=== PATIENT | male | born 1960 | race Caucasian/White ===

== ENCOUNTER → 2016-12-02 | Outpatient (CLI) | payer MEDICARE, BC ==
[~2016-12-02] MED LIST: AMBIEN PO; AMBIEN10 MG PO; AMIODARONE HCL100 MG PO; ASPIRIN81 M1 PO; B COMPLEX1 CA1; B-121000 MC4 PO; B-COMPLEX; B1 PO; BENAZEPRIL PO; BUMETANIDE2 M1 PO; BUMEX PO; BUMEX2 MG PO; CARDURA PO; CHEWABLE ASPIRI81 MG PO; CHLOROTHIAZIDE500 MG PO; CLOBETASOL PROP15 G1 TOP; CLOBETASOL PROP15 GM; CLOBETASOL PROP15 GM TP; COLACE PO; COLESTID1 GM PO; COMBIVENT MININEB; COMBIVENT MININEB INH; COMBIVENT U/D3 M2 INH; COREG6.25 M1 PO; COUMADIN3 MG PO; COUMADIN7.5 MG PO; COZAAR PO; D3 + K2 DOTS 1,1 TAB PO; D3 PO; EFFEXOR PO; EFFEXOR XR PO; EFFEXOR-XR150 MG PO; ENBREL50 MG/M1 SQ; ESCITALOPRAM OX10 MG PO; FERROUS SULFATE1 GM; FLAGYL PO; FOLIC ACID PO; FOLIC ACID1 MG PO; FORADIL12 MCG NEB; GENESUPP-5001 CAP PO; IMDUR-ER30 M1 PO; INDERAL20 MG PO; ISOSORBIDE PO; LEVAQUIN PO; LEXAPRO PO; LIPITOR20 MG PO; LIPITOR40 MG PO; LOPERAMIDE HCL2 M1 PO; LOPRESSOR PO; LORTAB 7.5-5001 TAB PO; LOVAZA1 G PO; LOVENOX80 MG/0.8 INJ; METHIMAZOLE10 MG PO; METHIMAZOLE5 MG PO; METOPROLOL PO; METOPROLOL SUC100 MG PO; METOPROLOL TAR25 MG PO; MEVACOR40 MG PO; NEURONTIN100 MG PO; NEXIUM PO; NITROSTAT0.4 MG SL; OMEPRAZOLE20 M1 PO; OMEPRAZOLE40 M1 PO; OTEZLA30 MG PO; PANTOPRAZOLE SO40 MG PO; PHENERGAN25 M1 PO; PHENERGAN25 MG PO; PHOSLO667 MG PO; PLAVIX PO; PREDNISONE PO; PREDNISONE5 M1 PO; PRILOSEC PO; PRILOSEC20 MG PO; PROCRIT SUBQ; PROGRAF0.5 MG PO; PROMETHAZINE HC25 MG PO; PROTONIX PO; QUININE SULFAT324 MG PO; REGLAN5 MG PO; RENVELA800 MG PO; SPIRIVA18 MCG PO; SUPER B COMPLEX1 CAP PO; THERAPEUTIC FOR1 TA1 PO; TOPROL XL PO; VICODIN 5-3001 EACH PO; VIT B 1; VIT B 12 INJECTION; VITAMIN B-1100 M1 PO; VITAMIN D PO; VITAMIN D31000 UNI1 PO; VITAMIN D5000 UNIT PO; VITAMIN D50000 UNIT PO; VYTORIN 10/20 T1 TAB PO; [UNRECOGNIZED DRUG - CODE]; [UNRECOGNIZED DRUG - OTHER] PO
[2016-12-03 11:47] LABS: HEP B VIRUS DNA - VIRAL LOAD REF
[2016-12-04 08:43] LABS: HEP C AB (HEPPAN) Nonreactive (Nonreactive); HEP C AB SIGNAL TO CUTOFF 0.13 ratio (<1.00)
== END | disposition home or self-care (01) ==
LOC: STPL 11:17
PROVIDERS: Surgery
DX: Z48.22 Encounter for aftercare following kidney transplant (principal); Z94.0 Kidney transplant status; Z79.899 Other long term (current) drug therapy
CPT/HCPCS: 36415; 86803; 87517; 87806

== ENCOUNTER → 2016-12-23 | Outpatient (CLI) | payer MEDICARE, BC ==
[2016-12-23 09:17] LABS: BASOPHIL# 0.1 X10e3 (0-0.3); BASOPHIL% 1.8 % (0-2.5); EOSINOPHIL% 1.3 % (0.0-7.0); HEMATOCRIT 26.2 % (38.0-50.0); HEMOGLOBIN 8.4 gm/dL (13.0-16.0); LYMPHOCYTE# 0.9 X10e3 (1.0-3.5); LYMPHOCYTE% 26.6 % (17.0-45.0); MEAN CELL VOLUME 106.6 FL (83-96); MEAN CORPUSCULAR HEMOGLOBIN 34.1 PG (28-34); MEAN PLATELET VOLUME 6.8 FL (6.5-11.5); MONOCYTE# 0.5 X10e3 (0-1.0); MONOCYTE% 15.1 % (3.0-12.0); NEUTROPHIL# 1.9 X10e3 (1.5-7.1); NEUTROPHIL% 55.2 % (40-75); PLATELET COUNT 180 X10e3 (140-420); RED BLOOD COUNT 2.46 X10e (3.90-5.60); RED CELL DISTRIBUTION WIDTH 24.3 % (11.0-15.5); WHITE BLOOD COUNT 3.5 X10e3 (4.0-10.5)
[2016-12-23 09:19] LABS: DIFF IND NO
[2016-12-23 09:45] LABS: AMPHETAMINE NEG (NEG); BARBITURATES NEG (NEG); BENZODIAZEPINES NEG (NEG); COCAINE NEG (NEG); MARIJUANA NEG (NEG); OPIATES NEG (NEG); TRICYCLIC ANTIDEPRESSANTS NEG (NEG); U METHADONE NEG (NEG)
[2016-12-23 11:45] LABS: ALBUMIN SERUM 2.8 g/dL (3.5-5.0); ALKALINE PHOSPHATASE 86 U/L (32-92); ALT (SGPT) 17 U/L (10-40); AST (SGOT) 35 U/L (10-42); BILIRUBIN,TOTAL 0.6 mg/dL (0.2-2.0); BLOOD UREA NITROGEN 38 mg/dL (9-23); BUN/CREATININE RATIO 6.78; CALCIUM SERUM 8.6 mg/dL (8.4-10.2); CARBON DIOXIDE 26 mmol/L (22-31); CHLORIDE 96 mmol/L (100-111); CHOLESTEROL 135 mg/dL (0-200); CREATININE SERUM 5.6 mg/dL (0.6-1.4); GLOM FILT RATE Estimated 11.2 mL/min (>60); GLUCOSE FASTING 71 mg/dL (70-110); MAGNESIUM 1.9 mg/dL (1.6-3.0); PHOSPHOROUS 5.2 mg/dL (2.5-4.6); POTASSIUM 5.1 mmol/L (3.5-5.1); PROTEIN TOTAL SERUM 5.9 g/dL (6.0-8.3); SODIUM 134 mmol/L (135-145); TRIGLYCERIDES 76 mg/dL (10-160)
[2016-12-23 11:50] LABS: ALCOHOL BLOOD <5 mg/dL (0)
[2016-12-23 15:28] LABS: EVEROLIMUS - JH <2.0 ng/mL (3.0-8.0); FK506 (TACROLIMUS) - JH <1.0 ng/mL (5.0-20.0)
== END | disposition home or self-care (01) ==
LOC: STPL 08:37
PROVIDERS: Surgery
DX: Z48.22 Encounter for aftercare following kidney transplant (principal); T45.1X1A Poisoning by antineoplastic and immunosuppressive drugs, accidental (unintentional), initial encounter; B97.7 Papillomavirus as the cause of diseases classified elsewhere; E83.40 Disorders of magnesium metabolism, unspecified; E83.30 Disorder of phosphorus metabolism, unspecified; Z94.0 Kidney transplant status; Z79.899 Other long term (current) drug therapy
CPT/HCPCS: 36415; 80053; 80197; 80299; 80307; 82465; 83735; 84100; 84478; 85025; G0480

== ENCOUNTER → 2017-01-21 | Outpatient (CLI) | payer MEDICARE, BC | END | disposition home or self-care (01) | LOC: STPL 08:18 | DX: Z48.22 Encounter for aftercare following kidney transplant (principal); T45.1X1A Poisoning by antineoplastic and immunosuppressive drugs, accidental (unintentional), initial encounter; Z94.0 Kidney transplant status; Z79.891 Long term (current) use of opiate analgesic | CPT/HCPCS: 36415; 80197 ==

== ENCOUNTER → 2017-02-25 | Outpatient (CLI) | payer MEDICARE, BC ==
[2017-02-25 11:29] LABS: IRON SERUM 42 ug/dL (45-182); TOTAL IRON BINDING CAPACITY 183 ug/dL (252-460); TRANSFERRIN 130 mg/dL (180-329); TRANSFERRIN SATURATION 23 % (20-50)
[2017-02-25 11:47] LABS: FOLATE (FOLIC ACID) >23.6 ng/mL (>5.8)
== END | disposition home or self-care (01) ==
LOC: STPL 08:43
PROVIDERS: Internal Medicine
DX: Z48.22 Encounter for aftercare following kidney transplant (principal); Z94.0 Kidney transplant status; Z79.891 Long term (current) use of opiate analgesic
CPT/HCPCS: 36415; 80197; 82607; 82728; 82746; 83010; 83540; 83550; 85044

== ENCOUNTER 2017-03-02 11:29 | Inpatient (IN) | payer MEDICARE, BC ==
--- NOTE | ~2017-03-02 | CO ---
Unit #: [id number] #: [id number] Patient: SARAH MEIER [id number] [address] [address] [id number] I MR#: [id number] NAME: SARAH MEIER. ROOM: 574 Age: 56 Sex: M Admission Date: 03/02/2017 : 1960 Attending Physician: Ezekiel Arthur M.D. Primary Care Physician: Jamison Gonzalez M.D. Consultation Date: 03/03/2017 CONSULTATION REPORT REASON FOR CONSULTATION Abnormal thyroid function tests. HISTORY OF PRESENT ILLNESS This is a 56-year-old pleasant male who has history of multiple medical problems including hyperthyroidism; end-stage renal disease, on hemodialysis; atrial flutter and fibrillation; coronary artery disease, CHF; hypertension; and hyperlipidemia. He has been presented to the hospital with increasing shortness of air and being admitted with the diagnoses of pneumonia. As mentioned above, his medical history remarkable for hyperthyroidism, on methimazole 5 mg daily. He follows me in my office regularly. On this admission, he had labs done, which is TSH is 18.5 with a free T4 0.55, free T3 is 2.0. I have been asked to see the patient for further management. REVIEW OF SYSTEMS A 10-point review of system is completed. Remarkable for shortness of air. Cough with sputum. No weight changes. Rest of the review of system is unremarkable. PAST MEDICAL HISTORY 1. Congestive heart failure. 2. Pulmonary hypertension. 3. End-stage renal disease, on hemodialysis. 4. Hyperthyroidism. PAST SURGICAL HISTORY 1. Kidney transplant, failed. 2. Cardiac stents. 3. Coronary bypass grafting surgery. 4. Left upper extremity shunt placement. 5. Cholecystectomy. SOCIAL HISTORY Lives with his . Quit smoking. Reports occasional alcohol use. FAMILY HISTORY Notable for dad having coronary artery disease. ALLERGIES To caffeine, codeine, amiodarone, and Effient. HOME MEDICATIONS Unit #: [id number] #: [id number] Patient: SARAH MEIER List is reviewed. The patient is on methimazole 5 mg daily. Other medications include; Lexapro, omeprazole, atorvastatin, gabapentin, isosorbide, loperamide, Procrit, Prograf, and prednisone. PHYSICAL EXAMINATION GENERAL: He is awake, alert, and oriented to time, place, and person. VITAL SIGNS: Stable. Temperature 98.2, pulse is 93, and blood pressure 140/73. HEENT: EOMI. Pupils are equally reactive to light. NECK: Supple. No thyromegaly noted. CHEST: Decreased air entry with some rhonchi bilaterally. CVS: Regular rhythm. S1 and S2. ABDOMEN: Soft and nontender. Bowel sounds are positive. EXTREMITIES: He does have some edema. LABORATORY DATA Creatinine is 4.7. TSH is 18.5. ASSESSMENT Hyperthyroidism. PLAN The patient is biochemically hypothyroid at this time. He is going to discontinue his methimazole. Repeat thyroid function test in six weeks. Further management will depend upon those results. Dictated by... Yue Samuel/hernan TD: 03/04/2017 13:51 JOB #: [id number] CONSULTATION REPORT Page 1 of 1 X Florina Vega MD X CONSULTATION REPORT
--- NOTE | ~2017-03-02 | EKG ---
PATIENT: SARAH MEIER UNIT #: [id number] Ventricular Rate: 87 BPM Atrial Rate: 87 BPM P-R Interval: 188 ms QRS Duration: 110 ms Q-T Interval: 378 ms QTC Calculation(Bezet): 454 ms P Kaplan: 107 degrees Calculated R Kaplan: -14 degrees Calculated T Kaplan: 52 degrees Diagnosis Line: Normal sinus rhythm Diagnosis Line: Septal infarct , age undetermined Diagnosis Line: Abnormal ECG Diagnosis Line: When compared with ECG of 09-OCT-2016 12:55, Diagnosis Line: No significant change was found Diagnosis Line: Confirmed by SHILPI TEMPLETON MD ([id number]) on Diagnosis Line: 03/04/2017 3:11:55 PM INTERPRETING MD: JARETH AMEZCUA
--- NOTE | ~2017-03-02 | EKG ---
PATIENT: SARAH MEIER UNIT #: [id number] Ventricular Rate: 85 BPM Atrial Rate: 85 BPM P-R Interval: 174 ms QRS Duration: 104 ms Q-T Interval: 388 ms QTC Calculation(Bezet): 461 ms P Afton: 34 degrees Calculated R Afton: 19 degrees Calculated T Afton: 61 degrees Diagnosis Line: Normal sinus rhythm Diagnosis Line: Normal ECG Diagnosis Line: When compared with ECG of 02-MAR-2017 12:02, Diagnosis Line: (unconfirmed) Diagnosis Line: No significant change was found Diagnosis Line: Confirmed by HEMA ARORA MD ([id number]) on Diagnosis Line: 03/04/2017 5:25:53 PM INTERPRETING MD: DEVIN
--- NOTE | ~2017-03-02 | DS ---
Unit #: [id number] #: [id number] Patient: SARAH MEIER [id number] [place] [address] [id number] I MR#: [id number] NAME: SARAH MEIER. ROOM: 574 Age: 56 Sex: M Admission Date: 03/02/2017 : 1960 Discharge Date: 03/04/2017 Attending Physician: Ezekiel Arthur M.D. Primary Care Physician: Jamison Gonzalez M.D. DISCHARGE SUMMARY DISCHARGE DIAGNOSES 1. Simple pneumonia/community-acquired pneumonia. 2. Acute hypoxic respiratory failure. 3. End stage renal disease. 4. Anemia of chronic disease. 5. Hyperthyroidism. 6. Chronic diastolic heart failure. 7. History of renal transplant. HOSPITAL COURSE The patient is a 56-year-old male who presented to [facility] on 03/02/17 complaining of shortness of breath and fever. He had had 3-4 days of increasing shortness of breath and nonproductive cough with fevers and chills. Chest x-ray showed pneumonia. Patient's oxygen saturations were initially in the 90s, but dropped into the 80s prior to presentation. Therefore, he initially required 2 liters of oxygen per nasal cannula. Patient was initially treated with vanc., Zosyn, and tobra. given a recent admission at [facility]. The patient's clinical course has not been complicated and, based on this, I feel that an actual diagnosis of a hospital-acquired pneumonia is less likely. His aggressive IV antibiotics have thus been discontinued. At this time, the patient is actually up and ambulating without difficulty and requesting discharge. I am discharging him home on oral Levaquin. DISCHARGE MEDICATIONS 1. Prednisone 5 mg daily. 2. Combivent Respimat 1 puff q.i.d. 3. Clobetasol propionate topically as needed. 4. Neurontin 200 mg p.o. b.i.d. 5. Lexapro 10 mg p.o. daily. 6. Loperamide 2 mg p.o. daily. 7. Quinine sulfate 324 mg p.o. b.i.d. 8. Ambien 10 mg p.o. q.h.s. 9. Coreg 6.25 mg p.o. b.i.d. 10. Otezla 30 mg daily. 11. Procrit at dialysis. 12. Lipitor 10 mg at bedtime. 13. Ferrous sulfate granules daily. 14. Prograf 0.05 mg every other day. 15. Imdur ER 30 mg p.o. daily. 16. Nitrostat 0.4 mg sublingual as needed. 17. Vitamin B12 1000 mcg p.o. at bedtime. 18. Folic 1 mg at bedtime. Unit #: [id number] #: [id number] Patient: SARAH MEIER 19. Levaquin 500 mg p.o. every other day x2 doses. FOLLOWUP 1. Patient is to follow up with his primary care physician at the end of his antibiotic course. 2. Patient should also follow up with his regular scheduled dialysis. Dictated by... Ezekiel Arthur M.D. [place]UST[place]/celine TD: 03/05/2017 11:09 JOB #: [id number] DISCHARGE SUMMARY Page 1 of 1 X Ezekiel Arthur MD X DISCHARGE SUMMARY
--- NOTE | ~2017-03-02 | CO ---
Unit #: [id number] #: [id number] Patient: SARAH MEIER [id number] [facility] [address] [facility]. [place], [place] [address] [id number] I MR#: [id number] NAME: SARAH MEIER. ROOM: 574 Age: 56 Sex: M Admission Date: 03/02/2017 : 1960 Attending Physician: Ezekiel Arthur M.D. Primary Care Physician: Jamison Gonzalez M.D. Consultation Date: 03/03/2017 CONSULTATION REPORT REASON FOR CONSULT Chest pain. HISTORY OF PRESENT ILLNESS This is a 56-year-old white male known to Dr. Muniz with a past medical history of coronary artery disease, status post PCI and stent following a myocardial infarction in 2011. The patient later underwent a coronary artery bypass grafting x4 grafts by Dr. Teran in February 2013. 2D echocardiogram on October 14, 2014, revealed an ejection fraction of 50% with mild mitral and aortic regurgitation with moderate tricuspid regurgitation. Right ventricular systolic pressure was elevated at 56 mmHg. Of note, the patient's previous ejection fraction was low at 30%. Additional past medical history includes end stage renal disease on hemodialysis with history of failed right renal transplant, hypertension, hyperlipidemia, COPD, and chronic pancytopenia. The patient was admitted to [facility] in October 2014 for Coumadin toxicity, dysphagia, and hyperthyroidism. He was also diagnosed with paroxysmal atrial fibrillation. According to the patient, he was not on anticoagulation for atrial fibrillation. He states that he was recently admitted to [facility] in the last couple of months with a complicated pneumonia. He was there for a prolonged length of time and his Coumadin was stopped. He presented to the emergency department with complaints of not feeling well. He states that he has been more short of breath. He has had a mildly productive cough and a possible fever but he had not checked his temperature. He has had some pain in his chest. It started in the left anterior chest and it was described as a stabbing pain. The following day the pain radiated into the right side of the chest. The pain has been nearly constant. It is worse with inspiration. He denies any dizziness or palpitations. He did have an episode a couple months ago of syncope which was not supposedly found to be a cardiac cause. Records from [facility] have been requested. He admits to some lower extremity edema but no worse than usual. There are no reports of PND or orthopnea. In the emergency department, his temperature was 98.4 with a pulse of 93 and blood pressure 148/69. Chest x-ray revealed increased atelectasis with consolidation in the left base. There was vague density in the right mid lung zone and mild cardiac prominence. There was concern for pneumonia and he was started on vancomycin and Zosyn, tobramycin and azithromycin. White blood cell count was normal. Hemoglobin was low at 7.2. Initial cardiac enzymes were negative. TSH was elevated at 18.52. EKG revealed sinus bradycardia with Q waves in the inferior leads and poor R wave progression in the anterior leads. The patient was admitted for Unit #: [id number] #: [id number] Patient: SARAH MEIER HCAP, chest pain and acute on chronic anemia with end stage renal disease. Sputum and blood cultures were obtained. He was started on nebulizers and antibiotics. Cardiology was consulted for chest pain. Nephrology was consulted to manage end stage renal disease. Gastroenterology was consulted due to anemia with a hemoglobin of 7.2. The patient was transfused with a unit of blood. He has been started on Epogen by nephrology. He underwent an EGD which was normal. His anemia is thought to be due to chronic disease. PAST MEDICAL HISTORY 1. Previous admission to [facility] October 22, 2014, for Coumadin toxicity, dysphagia, paroxysmal atrial fibrillation, and hyperthyroidism. 2. Chronic anticoagulation with Coumadin, which was recently stopped at [facility] for medical reasons. 3. Coronary artery disease with previous myocardial infarction in 2011, status post PCI and stent. 4. Coronary artery bypass grafting x4 in February 2013, by Dr. Teran at [facility]. 5. 2D echocardiogram October 14, 2014, revealed an ejection fraction of 50%. Mild mitral regurgitation. Moderate tricuspid regurgitation. Mild aortic regurgitation. Right ventricular systolic pressure 50 to 60 mmHg consistent with moderate to severe pulmonary hypertension. 6. History of ischemic cardiomyopathy with an ejection fraction of 30%, now improved to 50%. 7. Chronic systolic/diastolic congestive heart failure. 8. Hypertension. 9. Hyperlipidemia. 10. End stage renal disease, on hemodialysis. 11. COPD. 12. Chronic pancytopenia. 13. Failed right renal transplant. 14. GERD. 15. Reformed tobacco abuse. 16. Anxiety. 17. Chronic anemia. 18. Skin cancer. PAST SURGICAL HISTORY 1. Kidney biopsy. 2. EGD. 3. Colonoscopy. 4. Left arm shunt. 5. Cardiac catheterization, PCI and stent. 6. Coronary artery bypass grafting. 7. Cataract extraction. 8. Cholecystectomy. 9. Right kidney transplant, failed after approximately 11 months. HOME MEDICATIONS 1. Vitamin B12 1000 mcg p.o. at bedtime. 2. Escitalopram 10 mg p.o. daily. 3. Nitrostat 0.4 mg sublingual as needed for chest pain. 4. Lipitor 10 mg p.o. at bedtime. 5. Clobetasol, unknown dose on Med Rec. 6. Neurontin 100 mg p.o. b.i.d. 7. Otezla 30 mg p.o. daily. 8. Ferrous sulfate, unknown dose. Unit #: [id number] #: [id number] Patient: SARAH MEIER 9. Methimazole 5 mg p.o. at bedtime. 10. Quinine sulfate 324 mg p.o. b.i.d. 11. Procrit 20,000 units, dosing per nephrology. 12. Prograf 0.05 mg p.o. every other day. 13. Prednisone 5 mg p.o. with unknown frequency. 14. Ambien 10 mg p.o. at bedtime. 15. Carvedilol 6.25 mg p.o. b.i.d. 16. Imdur ER 30 mg p.o. daily. 17. Folic acid 1 mg p.o. at bedtime. 18. Loperamide 2 mg p.o. with unknown frequency. ALLERGIES Caffeine, codeine, amiodarone, and Effient. Reaction to amiodarone is reportedly tremors. SOCIAL HISTORY The patient is a reformed smoker. He quit smoking in 2010. There are no reports of illicit drug use. He does drink six beers per week. He has a history of heavier alcohol abuse but not recently. FAMILY HISTORY Significant for heart disease. A sister recently had myocardial infarction at the age of 59. REVIEW OF SYSTEMS Ten point review of systems is negative except for details noted above in HPI. PHYSICAL EXAMINATION VITAL SIGNS: Temperature 98, pulse 70, blood pressure 119/59. CONSTITUTIONAL: This is a 56-year-old white male in no acute distress. SKIN: Warm and dry. NECK: Supple. No jugular vein distention. No hepatojugular reflux. Normal carotid upstrokes. No carotid bruits auscultated. HEART: S1 and S2. Regular rate and rhythm. No murmurs, rubs or gallops. LUNGS: The patient's breath sounds are diminished in the bases. Respirations even and unlabored. No rales, rhonchi, or wheezes. ABDOMEN: Soft, nontender, and nondistended. Positive bowel sounds auscultated x4 quadrants. No ascites noted. EXTREMITIES: Bilateral extremities have no pretibial pitting edema. DP and PT pulses 2+. Capillary refill less than three seconds. DIAGNOSTIC STUDIES LABORATORY: White blood count 4.4, hemoglobin 8, hematocrit 24.7, platelets 126, sodium 132, potassium 4.2, chloride 101, CO2 22, BUN 41, creatinine 4.7, glucose 67, magnesium 1.5, protein 5.4, albumin 2.5, AST 18, ALT 13, alkaline phos. 65, troponin 0.03 and 0.03, total cholesterol 129, triglycerides 93, LDL 57, HDL 53, INR 1.0, TSH 18.52. IMAGING: Chest x-ray reveals increased atelectasis and consolidation in the left base. Vague density in the right mid lung zone. Mild cardiac vascular prominence. CARDIOVASCULAR: Electrocardiogram reveals sinus bradycardia with Q waves in the inferior leads and poor R wave progression. IMPRESSION 1. Chest pain. Unit #: [id number] #: [id number] Patient: SARAH MEIER 2. Left lower lobe pneumonia. 3. Acute on chronic anemia. 4. Status post normal esophagogastroduodenoscopy. 5. Coronary artery disease with history of coronary artery bypass grafting in February 2013, and previous PCI and stent in 2011. 6. History of ischemic cardiomyopathy with an ejection fraction of 30%. Ejection fraction was improved to 50% in October 2014. 7. Paroxysmal atrial fibrillation, now in sinus rhythm. Coumadin recently stopped at [facility] for medical reasons. Further information pending. 8. Moderate to severe pulmonary hypertension. 9. Moderate tricuspid regurgitation. 10. End stage renal disease, on hemodialysis. 11. Chronic obstructive pulmonary disease. 12. Hypertension. 13. Hyperlipidemia. 14. Failed right renal transplant. 15. Low magnesium. 16. Elevated TSH with history of hyperthyroidism. 17. History of alcohol abuse. 18. Reformed tobacco abuse. PLAN 1. The patient presented to the hospital with complaints of shortness of breath, cough and chest pain. He was admitted for pneumonia and acute on chronic anemia as well as end stage renal disease. 2. Cardiology was consulted for chest pain. 3. The patient's pain is sharp and stabbing. There is no radiation. Cardiac enzymes and EKG are not acute. 4. Will manage symptoms conservatively. 5. The patient is on antibiotics for pneumonia. 6. EGD was normal. The patient's anemia is thought to be due to chronic disease. 7. He will be continued on statin, beta omar and long acting nitrates. 8. Records from [facility] will be reviewed. The patient does have a history of paroxysmal atrial fibrillation and is currently in sinus rhythm. His Coumadin was stopped and usp anticoagulation will need to be discussed further upon discharge. Dictated by... Brianna Ruiz APRN for Yue Bates TD: 03/04/2017 08:53 JOB #: [id number] Unit #: [id number] #: [id number] Patient: SARAH MEIER CONSULTATION REPORT Page 1 of 1 X X CONSULTATION REPORT
--- NOTE | ~2017-03-02 | OR ---
Unit #: [id number] #: [id number] Patient: SARAH MEIER [id number] [facility] [address] [facility]. [place], [place] [address] [id number] MR#: [id number] NAME: SARAH MEIER. ROOM: 574 Date of Procedure: 03/03/2017 Admission Date: 03/02/2017 Surgeon: Too Barnhart M.D. : 1960 Attending Physician: Ezekiel Arthur M.D. Primary Care Physician: Jamison Gonzalez M.D. OPERATIVE REPORT PRIMARY CARE PHYSICIAN Jamison Gonzalez M.D. PREOPERATIVE DIAGNOSIS Anemia. PROCEDURE PERFORMED Upper gastrointestinal endoscopy. POSTOPERATIVE DIAGNOSES Completely normal examination up to third part of duodenum. RECOMMENDATIONS The patient does not have any gastrointestinal source of blood loss. In fact, the anemia is from renal disease and it should be managed with either blood transfusions or Procrit as needed. He has been extensively evaluated 2 years ago at [facility] and recently at [facility]. He can be started on diet as tolerated. SEDATION USED MAC. DESCRIPTION OF PROCEDURE Following detailed explanation of potential risks and complications of an upper endoscopy, namely perforation, bleeding, complication related to sedation, the patient was brought to GI lab and laid in the left lateral decubitus position. Lubricated tip of the Olympus video upper endoscope was passed through the bite block into the proximal esophagus under direct vision. The entire esophageal mucosa was examined and appeared normal. Z-line was nicely demarcated, there being no esophagitis or hiatus hernia. The scope was then advanced into the gastric cavity and the latter was insufflated. Mucosa of the fundus, body, and antrum was examined and appeared unremarkable. Pylorus was intubated with visualization of the normal duodenal bulb and second and third part of the duodenum. Upon withdrawal and retroflexion, incisura, cardia, and greater curve were examined and no additional findings noted. The scope was then withdrawn into the distal esophagus. The entire esophageal mucosa was examined all the way up to pharynx. No additional findings noted. The patient tolerated the procedure without any postprocedure complications. Dictated by... Unit #: [id number] #: [id number] Patient: SARAH MEIER TooYue Delvalle/hernan TD: 03/04/2017 05:35 JOB #: [id number] CC: Yue Rico M.D. OPERATIVE REPORT Page 1 of 1 X Too Barnhart MD X PROCEDURE OPERATIVE NOTE
--- NOTE | ~2017-03-02 | HP ---
Unit #: [id number] #: [id number] Patient: SARAH MEIER [id number] [facility]. [place], [place] [address] [id number] MR#: [id number] NAME: SARAH MEIER ROOM: Age: 56 Sex: M Admission Date: 03/02/2017 : 1960 Attending Physician: Paresh Cruz M.D. Primary Care Physician: Jamison Gonzalez M.D. HISTORY AND PHYSICAL CHIEF COMPLAINT Chest pain, short of air, fever. HISTORY OF PRESENT ILLNESS The patient is a 56-year-old male with a past medical history of chronic anemia, end-stage renal disease, on dialysis, atrial fibrillation/flutter, coronary artery disease, CHF, hypertension, hyperlipidemia, and hypothyroidism, who presented to the emergency department for evaluation of the above. The patient had a prolonged hospital stay at [facility] in October for pneumonia and sepsis. He was discharged to [facility] and ultimately returned home in December 2016 (no records). The patient had returned to baseline. The patient reports a three to four-day history of increasing shortness of breath, nonproductive cough, fever, and chills. He has also had chest pain. He states that the pain has been in the left upper chest radiating to his shoulder blades, as well as the right upper chest and also radiating to his back. Currently, the chest pain is in the mid chest. He describes it as "sharp." He has been somewhat nauseous in association with the pain. He states that it is not similar to when he had a heart attack in the past. Upon arrival in the emergency department, temperature was 98.4, pulse 93, respirations 18, blood pressure 148/69, and oxygen saturation 96% on room air. Chest x-ray showed consolidation involving the left base. Laboratory is notable for hemoglobin and hematocrit of 7.2 and 22.7, respectively. He was given vancomycin, tobramycin, and Zosyn in the emergency department, as well as azithromycin. He is being admitted to [facility] for evaluation and further treatment. PAST MEDICAL HISTORY 1. Admission to [facility] in October 2016 for pneumonia and sepsis. 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 He was discharged to [facility] and ultimately home in December 2016. He also underwent EGD and colonoscopy during that hospital stay. There are no records at the time of this dictation. The family states that he received 17 blood transfusions during that admission. 2. Admission to [facility] October 13-2014, for atrial fibrillation with rapid ventricular response. 3. History of atrial fibrillation/flutter, not on chronic anticoagulation, followed by Dr. Muniz. Unit #: [id number] #: [id number] Patient: SARAH MEIER 4. Coronary artery disease, status post myocardial infarction, stent placement, and ultimately coronary artery bypass grafting, followed by Dr. Muniz. 5. Congestive heart failure. The patient had an echocardiogram on October 14, 2014, that showed an ejection fraction of 50% with mild mitral regurgitation, moderate tricuspid regurgitation, mild aortic regurgitation, and elevated right ventricular systolic pressure at 50-60 mmHg. 6. Pulmonary hypertension with right ventricular systolic pressure as noted above. 7. Chronic obstructive pulmonary disease, followed by Dr. Mcknight. 8. Chronic respiratory failure, on two liters of oxygen per nasal cannula at night. 9. Hypertension. 10. Hyperlipidemia. 11. Chronic pancytopenia, followed by Dr. Hernandez. 12. End-stage renal disease, on dialysis Friday/Friday/Friday, followed by Dr. Schilling. The patient had a kidney transplant in November 2015. It apparently showed signs of rejection in October 2016. He is followed by Dr. Renee. PAST SURGICAL HISTORY 1. Kidney transplant. 2. Cardiac stent. 3. Cardiac catheterization. 4. Coronary artery bypass grafting. 5. EGD and colonoscopy most recently at [facility] in 2017 (no records). 6. Left upper extremity shunt placement. 7. Cataract surgery. 8. Cholecystectomy. SOCIAL HISTORY The patient lives with his . He quit smoking. He reports occasional alcohol use. He uses a cane intermittently. His code status is a Full Code. FAMILY HISTORY Notable for his dad having coronary artery disease. ALLERGIES Caffeine, codeine, amiodarone, and Effient. HOME MEDICATIONS 1. Vitamin B12. 2. Multivitamin. 3. Lexapro. 4. Omeprazole. 5. Nitroglycerin. 6. Atorvastatin. 7. Clobetasol ointment. 8. Gabapentin. 9. Otezla. 10. Iron sulfate. 11. Methimazole. 12. Quinine sulfate. 13. Ambien. 14. Carvedilol. Unit #: [id number] #: [id number] Patient: SARAH MEIER 15. Isosorbide. 16. Folic acid. 17. Loperamide. 18. Procrit shot. 19. Prograf. 20. Prednisone. Home medications will need to be reviewed and verified. REVIEW OF SYSTEMS A complete review of systems is negative except as indicated in the History of Present Illness. The patient reports paroxysmal nocturnal dyspnea. He also has dyspnea on exertion when walking across the room. He denies any change in his weight. He denies any blood in his stool or black tarry stool. He still makes urine. He denies any lower extremity swelling. The patient states that he has had a sleep study in the past and was told that he does not have sleep apnea. PHYSICAL EXAMINATION VITAL SIGNS: Temperature is 98.4, pulse 93, respirations 18, blood pressure 148/69, and oxygen saturation is 96% on room air. GENERAL: Patient is a very pleasant male who is awake, alert, and in no acute distress. HEENT: Head is atraumatic. Mucous membranes are moist. NECK: Supple. Trachea is midline. CARDIOVASCULAR: Regular rate and rhythm. LUNGS: Relatively clear to auscultation bilaterally with no increased work of breathing. ABDOMEN: Soft and nontender with bowel sounds present in all four quadrants. EXTREMITIES: Nontender with no pedal edema. NEUROLOGIC: Patient is awake and alert. He follows commands. PSYCHIATRIC: Mood and affect are normal. Patient is cooperative. SKIN: Skin of examined areas is warm and dry. DIAGNOSTIC STUDIES LABORATORY: Troponin is less than 0.05. INR is 1. Complete blood count notable for hemoglobin and hematocrit of 7.2 and 22.7, MCV is 108.3, RDW 16.5, and platelets 137,000. Comprehensive metabolic panel notable for a sodium of 134, glucose 112, BUN and creatinine 36 and 4.5, respectively, and calcium is 8 but corrects when albumin of 2.8 is accounted for. IMAGING: Chest x-ray shows consolidation involving the left base. CARDIOLOGY: EKG shows normal sinus rhythm with a rate of 87 beats per minute. ASSESSMENT The patient is a 56-year-old male with: 1. Healthcare-associated pneumonia. The patient received vancomycin, Zosyn, tobramycin, and azithromycin in the emergency department. 2. Chest pain with a history of coronary artery disease, status post coronary artery bypass grafting, followed by Dr. Muniz. The patient's initial troponin was less than 0.05. 3. Acute on chronic anemia. The patient's hemoglobin was 8.4 on December 23, 2016. It is 7.2 today. The patient denies any blood in the stool or black tarry stool. He is on Procrit, as well as iron. He had an EGD and colonoscopy earlier this year at [facility] (no Unit #: [id number] #: [id number] Patient: SARAH MEIER). 4. End-stage renal disease, on dialysis Friday/Friday/Friday. The patient apparently missed dialysis on Friday but had dialysis yesterday. He is followed by Dr. Schilling. He is status post failed kidney transplant. However, he is still on Prograf and prednisone and is therefore chronically immunosuppressed. He is followed by Dr. Renee regarding the kidney transplant. 5. Atrial fibrillation, currently in normal sinus rhythm, not on chronic anticoagulation due to chronic anemia. 6. Coronary artery disease, status post coronary artery bypass grafting. 7. Congestive heart failure with an ejection fraction of 50% on echocardiogram October 14, 2014. 8. Hypertension. 9. Hyperlipidemia. 10. Hypothyroidism. 11. Former smoker. PLAN 1. Admit to intermediate level. 2. Clear liquid diet for possible endoscopy. 3. Blood cultures x2. 4. Sputum culture and sensitivity. 5. Supplemental oxygen. 6. Procalcitonin level. 7. Streptococcal and legionella urine antigens. 8. P.r.n. DuoNebs. 9. Vancomycin IV, tobramycin IV, and Zosyn IV for healthcare-associated pneumonia pending further workup. 10. Serial cardiac enzymes. 11. Fasting lipid panel. 12. Consult Dr. Muniz regarding chest pain and history of coronary artery disease. 13. Transfuse one unit of packed red blood cells now. 14. Hemoglobin and hematocrit one hour after transfusion and q.6 hours. Will plan to transfuse for a hemoglobin less than 8 due to history of coronary artery disease. 15. Hemoccult stool. 16. Protonix 40 mg IV daily with first dose now. 17. Consult Dr. Schilling regarding end-stage renal disease, on dialysis. 18. Check urinalysis. 19. TSH. 20. Get records from [facility] including History and Physical, Discharge Summary, and endoscopy reports. 21. Consult Dr. Barnhart regarding anemia. 22. P.r.n. Zofran. 23. SCDs for DVT prophylaxis. 24. Repeat labs in the morning. 25. Additional workup and consultants based on above. 12. Regarding code status, the patient is a Full Code. 1. Dictated by Yue Rico/matthew TD: 03/02/2017 14:28 JOB #: [id number] Unit #: [id number] #: [id number] Patient: RENEASARAH Sheeba HISTORY AND PHYSICAL Page 1 of 1 X Yesi Lock MD HISTORY AND PHYSICAL
--- NOTE | ~2017-03-02 | CR72 ---
[facility] A Service of [facility] RADIOLOGY TEXT RESULTS PATIENT: SARAH MEIER LOCATION: [facility] 574-01 : 56 UNIT #: [id number] AGE: [address]: Ezekiel Arthur MD SEX: M ORDER DR: [id number] [facility] [address] [facility]. [place], [place] [address] [id number] MR#: [id number] Acc #: [id number] NAME: SARAH MEIER. : 1960 SEX: M STUDY DATE/TIME: 03/02/2017 12:06 UNIT: ALEX ROOM: STUDY DESCRIPTION: CR Chest Single View Portable Attending Physician: Paresh Cruz M.D. Ordering Physician: Paresh Cruz M.D. Primary Care Physician: Jamison Gonzalez M.D. MEDICAL IMAGING REPORT This report is preliminary unless electronic signature is present EXAM Portable chest INDICATION Chest pain, shortness of breath since Friday. COMPARISON Comparison with 11/14/2016. FINDINGS There is increased consolidation or atelectasis in the left base. There is prominent pulmonary vasculature bilaterally. Stable cardiomegaly. Prior sternotomy. There is a hazy density in the right mid zone which may represent infiltrate. IMPRESSION 1. Increased atelectasis or consolidation in the left base. 2. There is a vague density in the right mid zone which may represent a developing infiltrate. 3. Cardiomegaly with prominent pulmonary vasculature. Dictated by... Kaushal Garcia M.D. THIS IS AN ELECTRONICALLY VERIFIED REPORT Kaushal Garcia M.D. at 03/03/2017 12:36 PM ARS/brenda TD: 03/02/2017 13:01 JOB #: [id number] MEDICAL IMAGING REPORT [facility] of [facility] RADIOLOGY TEXT RESULTS PATIENT: SARAH MEIER LOCATION: [facility] 574-01 : 56 UNIT #: [id number] AGE: [address]: Ezekiel Arthur MD SEX: M ORDER DR: Page 1 of 1 COPY
--- NOTE | ~2017-03-02 | CO ---
Unit #: [id number] #: [id number] Patient: SARAH MAY [id number] [address] [id number] MR#: [id number] NAME: SARAH MAY ROOM: 574 Age: 56 Sex: M Admission Date: 03/02/2017 : 1960 Attending Physician: Ezekiel Arthur M.D. Primary Care Physician: Jamison Gonzalez M.D. Consultation Date: 03/03/2017 CONSULTATION REPORT PRIMARY CARE PHYSICIAN Jamison Gonzalez M.D. REASON FOR CONSULTATION Anemia, rule out GI bleed. HISTORY OF PRESENT ILLNESS Mr. May is a 56-year-old white gentleman, who is status post end-stage renal disease, on hemodialysis. The patient had renal transplant with rejection. He presented with a history of increasing shortness of breath, chest pain and fever and has been treated for pneumonia. His cough is nonproductive along with fever and chills. He also has short pleuritic chest pains. X-ray shows left lower lung consolidation. The patient is started on IV antibiotics since after admission. In addition, he has been found to have normochromic normocytic anemia. There is no history of overt GI bleed in the form of hematemesis, melena, or hematochezia. PAST MEDICAL HISTORY Significant for history of atrial flutter and fibrillation, he is not on any anticoagulation; history of failed renal transplant, the patient is back on hemodialysis; coronary artery disease, status post myocardial infarction, coronary stent placement, bypass grafting, congestive heart failure; pulmonary hypertension with right ventricular systolic pressure of 60 mm; chronic respiratory failure, on 2 L home oxygen nasal cannula at night for COPD, managed by Dr. Mcknight; hypertension; hyperlipidemia; chronic pancytopenia; and end-stage renal disease, on hemodialysis. PAST SURGICAL HISTORY Included renal transplant, cardiac stent placement, coronary bypass surgery as well as cholecystectomy and cataract surgery. MEDICATIONS At home include the following; iron sulfate, methimazole, quinine sulfate, Ambien, carvedilol, isosorbide, folic acid, loperamide, Procrit, Prograf, prednisone, atorvastatin, nitroglycerin, omeprazole, Lexapro, gabapentin, vitamin B12. ALLERGIES He is allergic to codeine, amiodarone, Effient and caffeine. SOCIAL HISTORY The patient lives at home with his . He quit smoking. Occasionally uses alcohol. Walks with a cane. Unit #: [id number] #: [id number] Patient: SARAH MAY FAMILY HISTORY There is no family history of colon, pancreatic cancer, or liver disease. There is family history of coronary artery disease in his father. REVIEW OF SYSTEMS Detailed review of organ system reveals history of fever, chills along with cough and minimal expectoration and shortness of breath. There is no history of recent weight loss. No history of headache, seizures, or syncope. No history of dysuria, hematuria, or pyuria. No history of focal seizures or extremity weakness. Rest of the review of organ systems is unremarkable. PHYSICAL EXAMINATION GENERAL: He is alert and oriented, and appears pale. VITAL SIGNS: Stable with a temperature of 98.3, peak temperature yesterday was 100.7, pulse is 77 per minute and regular, respirations 20, and blood pressure is 137/65. He weighs 225 pounds, which is close to his baseline weight. HEENT: He has moderate pallor there being no icterus or lymphadenopathy. Grade 1 pitting peripheral edema. CARDIOVASCULAR: Normal heart sounds. No murmurs. LUNGS: On auscultation, reveal normal breath sounds. Good air entry. ABDOMEN: Soft, obese, and nontender. Liver and spleen are not palpable. Bowel sounds normal. DIAGNOSTIC STUDIES LABORATORY RESULTS: Shows a glucose of 112, BUN and creatinine of 36 and 4.5. His albumin is 2.5, potassium is 4.3, sodium 134. LFTs are normal. INR is 1.0. Hemoglobin on admission was 7.2, post transfusion hemoglobin is 9, white count is 5.2, and platelet count is 137. CLINICAL IMPRESSION The most likely etiology of the patient's anemia is anemia of renal disease. There is no suggestion of overt GI bleed as far as the patient's history is concerned. It is noteworthy that the patient had been evaluated a couple of years ago with upper endoscopy and a colonoscopy at that time, which were normal. Therefore, there is little reason to repeat colonoscopy; however, an upper endoscopy will be performed later today to look for any evidence of ulcer disease or angiodysplasias in the upper gastrointestinal tract. The pros and cons of procedure, potential risks, complications were discussed with the patient and was reassured. Concomitant medical problems including end-stage renal disease, on hemodialysis, failed renal transplant, congestive heart failure, chronic obstructive pulmonary disease, pulmonary hypertension. Thank you very much for asking me to see this pleasant gentleman. I appreciate the consult. Dictated by... Too Barnhart M.D. JOSSE/hernan TD: 03/04/2017 05:56 JOB #: [id number] CC: Yue Saldivar M.D. Unit #: [id number] #: [id number] Patient: SARAH MAY M.D. CONSULTATION REPORT Page 1 of 1 X Too Barnhart MD X CONSULTATION REPORT
[~2017-03-02 11:29] MED LIST changes: -B-121000 MC4 PO; -CLOBETASOL PROP15 GM; -COMBIVENT U/D3 M2 INH; -COREG6.25 M1 PO; -ESCITALOPRAM OX10 MG PO; -FERROUS SULFATE1 GM; -FOLIC ACID1 MG PO; -IMDUR-ER30 M1 PO; -LEVAQUIN PO; -LIPITOR40 MG PO; -LOPERAMIDE HCL2 M1 PO; -METHIMAZOLE5 MG PO; -PREDNISONE5 M1 PO; -PROGRAF0.5 MG PO; -QUININE SULFAT324 MG PO; -[UNRECOGNIZED DRUG - CODE]
[2017-03-02 12:19] LABS: BASOPHIL% 0.4 % (0-2.5); DIFF IND YES; EOSINOPHIL% 0.4 % (0.0-7.0); HEMATOCRIT 22.7 % (38.0-50.0); HEMOGLOBIN 7.2 gm/dL (13.0-16.0); LYMPHOCYTE# 0.7 X10e3 (1.0-3.5); LYMPHOCYTE% 13.1 % (17.0-45.0); MEAN CELL VOLUME 108.3 FL (83-96); MEAN CORPUSCULAR HEMOGLOBIN 34.6 PG (28-34); MEAN CORPUSCULAR HGB CONC 31.9 g/dL (30-36); MEAN PLATELET VOLUME 7.7 FL (6.5-11.5); MONOCYTE# 0.9 X10e3 (0-1.0); MONOCYTE% 16.7 % (3.0-12.0); NEUTROPHIL# 3.6 X10e3 (1.5-7.1); NEUTROPHIL% 69.4 % (40-75); PLATELET COUNT 137 X10e3 (140-420); RED BLOOD COUNT 2.09 X10e (3.90-5.60); RED CELL DISTRIBUTION WIDTH 16.5 % (11.0-15.5); WHITE BLOOD COUNT 5.2 X10e3 (4.0-10.5)
[2017-03-02 12:24] LABS: POC - TROPONIN <0.05 ng/mL (<=0.05)
[2017-03-02 12:32] LABS: PARTIAL THROMBOPLASTIN TIME 30.4 SECONDS (23.5-31.3); PROTHROMBIN TIME (PATIENT) 10.8 SECONDS (9.6-11.5)
[2017-03-02 12:34] LABS: NUCLEATED RED BLOOD CELL 1 /100 (0); PLATELET ESTIMATE NORMAL (NORMAL)
[2017-03-02 12:35] LABS: OVALOCYTES PRESENT
[2017-03-02 12:40] LABS: ALBUMIN SERUM 2.8 g/dL (3.5-5.0); BILIRUBIN, DIRECT 0.1 mg/dL (0.0-0.2); BILIRUBIN,INDIRECT 0.2 mg/dL (0.0-0.9); BILIRUBIN,TOTAL 0.3 mg/dL (0.2-2.0); CREATININE SERUM 4.5 mg/dL (0.6-1.4); GLOM FILT RATE Estimated 13.4 mL/min (>60); POTASSIUM 4.3 mmol/L (3.5-5.1); PROTEIN TOTAL SERUM 6.2 g/dL (6.0-8.3)
[2017-03-02 14:28] LABS: CHOLESTEROL 129 mg/dL (0-200); HDL CHOLESTEROL 53 mg/dL (29-75); LDL CHOLESTEROL 57 mg/dL (-130); LDL/HDL RATIO 1 RATIO (0-4); TRIGLYCERIDES 93 mg/dL (10-160)
[2017-03-02 14:28] LABS: POC - TROPONIN <0.05 ng/mL (<=0.05)
[2017-03-02 18:52] LABS: URINE SOURCE CLEAN CATCH
[2017-03-02 18:58] LABS: URINE APPEARANCE CLEAR; URINE BILIRUBIN NEG (NEG); URINE BLOOD NEG (NEG); URINE COLOR YELLOW; URINE GLUCOSE 100 MG/DL (NEG); URINE KETONE NEG (NEG); URINE LEUKOCYTE ESTERASE NEG (NEG); URINE NITRATE NEG (NEG); URINE PROTEIN 2+ (NEG); URINE SPECIFIC GRAVITY 1.012 (1.003-1.035); URINE UROBILINOGEN 0.2 MG/DL (NEG)
[2017-03-02 19:00] LABS: U HYALINE CASTS AUWI 0-2 /[LPF]; URBCS1 AUWI 0-2 /[HPF] (0-2); URINE BACTERIA AUWI NEG (NEGATIVE); URINE SQUAMOUS EPITHELIAL CELL NONE SEEN /[HPF]; UWBCS1 AUWI 0-2 (0-5)
[2017-03-02 19:02] LABS: CULTURE INDICATED? NO
[2017-03-02 21:11] LABS: CK TOTAL 46 IU/L (36-174)
[2017-03-02] MEDS ORDERED: B-121000 MC4 PO (21:22)
[2017-03-02] MEDS ORDERED: ESCITALOPRAM OX10 MG PO (21:22)
[2017-03-02] MEDS ORDERED: CLOBETASOL PROP15 GM (21:23)
[2017-03-02] MEDS ORDERED: NITROSTAT0.4 MG SL (21:23)
[2017-03-02] MEDS ORDERED: LIPITOR40 MG PO (21:23)
[2017-03-02] MEDS ORDERED: NEURONTIN100 MG PO (21:24)
[2017-03-02] MEDS ORDERED: OTEZLA30 MG PO (21:25)
[2017-03-02] MEDS ORDERED: FERROUS SULFATE1 GM (21:25)
[2017-03-02] MEDS ORDERED: METHIMAZOLE5 MG PO (21:26)
[2017-03-02] MEDS ORDERED: QUININE SULFAT324 MG PO (21:26)
[2017-03-02] MEDS ORDERED: AMBIEN10 MG PO (21:27)
[2017-03-02] MEDS ORDERED: FOLIC ACID1 MG PO (21:28)
[2017-03-02] MEDS ORDERED: IMDUR-ER30 M1 PO (21:28)
[2017-03-02] MEDS ORDERED: COREG6.25 M1 PO (21:28)
[2017-03-02] MEDS ORDERED: [UNRECOGNIZED DRUG - CODE] (21:29)
[2017-03-02] MEDS ORDERED: LOPERAMIDE HCL2 M1 PO (21:29)
[2017-03-02] MEDS ORDERED: PROGRAF0.5 MG PO (21:30)
[2017-03-02] MEDS ORDERED: PREDNISONE5 M1 PO (21:31)
[2017-03-02 22:21] LABS: HEMATOCRIT 28.2 % (38.0-50.0); MEAN CELL VOLUME 105.5 FL (83-96); MEAN CORPUSCULAR HEMOGLOBIN 33.7 PG (28-34); MEAN CORPUSCULAR HGB CONC 31.9 g/dL (30-36); MEAN PLATELET VOLUME 7.5 FL (6.5-11.5); RED BLOOD COUNT 2.68 X10e (3.90-5.60); WHITE BLOOD COUNT 3.8 X10e3 (4.0-10.5)
[2017-03-03 02:59] LABS: BASOPHIL% 1.1 % (0-2.5); HEMATOCRIT 24.7 % (38.0-50.0); LYMPHOCYTE# 0.7 X10e3 (1.0-3.5); MEAN CELL VOLUME 104.4 FL (83-96); MEAN CORPUSCULAR HEMOGLOBIN 33.8 PG (28-34); MEAN CORPUSCULAR HGB CONC 32.4 g/dL (30-36); MEAN PLATELET VOLUME 7.4 FL (6.5-11.5); MONOCYTE# 0.8 X10e3 (0-1.0); MONOCYTE% 17.5 % (3.0-12.0); NEUTROPHIL# 2.8 X10e3 (1.5-7.1); NEUTROPHIL% 63.4 % (40-75); PLATELET COUNT 126 X10e3 (140-420); RED BLOOD COUNT 2.37 X10e (3.90-5.60); RED CELL DISTRIBUTION WIDTH 17.8 % (11.0-15.5); WHITE BLOOD COUNT 4.4 X10e3 (4.0-10.5)
[2017-03-03 03:04] LABS: DIFF IND NO
[2017-03-03 03:06] LABS: PARTIAL THROMBOPLASTIN TIME 31.9 SECONDS (23.5-31.3)
[2017-03-03 03:13] LABS: CK TOTAL 43 IU/L (36-174)
[2017-03-03 03:17] LABS: ALBUMIN SERUM 2.5 g/dL (3.5-5.0); BILIRUBIN,TOTAL 0.5 mg/dL (0.2-2.0); BUN/CREATININE RATIO 8.72; CALCIUM SERUM 7.6 mg/dL (8.4-10.2); CREATININE SERUM 4.7 mg/dL (0.6-1.4); GLOM FILT RATE Estimated 12.7 mL/min (>60); MAGNESIUM 1.5 mg/dL (1.6-3.0); PHOSPHOROUS 3.5 mg/dL (2.5-4.6); POTASSIUM 4.2 mmol/L (3.5-5.1); PROTEIN TOTAL SERUM 5.4 g/dL (6.0-8.3)
[2017-03-03 10:42] LABS: LEGIONELLA AG URINE NEG (NEG)
[2017-03-03 12:44] LABS: FREE THYROXIN (T4) 0.55 ng/dL (0.58-1.64)
[2017-03-04 05:44] LABS: HEMATOCRIT 24.4 % (38.0-50.0); MEAN CELL VOLUME 104.1 FL (83-96); MEAN CORPUSCULAR HEMOGLOBIN 33.9 PG (28-34); MEAN CORPUSCULAR HGB CONC 32.6 g/dL (30-36); MEAN PLATELET VOLUME 7.8 FL (6.5-11.5); RED BLOOD COUNT 2.35 X10e (3.90-5.60); RED CELL DISTRIBUTION WIDTH 17.4 % (11.0-15.5); WHITE BLOOD COUNT 3.3 X10e3 (4.0-10.5)
[2017-03-04 06:36] LABS: BUN/CREATININE RATIO 6.75; CALCIUM SERUM 8.2 mg/dL (8.4-10.2); CREATININE SERUM 3.7 mg/dL (0.6-1.4); POTASSIUM 4.1 mmol/L (3.5-5.1)
[2017-03-04] MEDS ORDERED: LEVAQUIN PO (13:38)
[2017-03-04] MEDS ORDERED: COMBIVENT U/D3 M2 INH (13:40)
== END 2017-03-04 16:44 | disposition home or self-care (01) | DRG 189 ==
LOC: CED 11:29 → C5C 13:40 → CEDOF 13:40 → CED 13:49 → C5C 23:18
PROVIDERS: Emergency Medicine; Family Medicine; Internal Medicine Cardiovascular Disease; Internal Medicine Gastroenterology
PROC: 30233N1 Transfusion of Nonautologous Red Blood Cells into Peripheral Vein, Percutaneous Approach (ICD-10-PCS; 2017-03-02)
PROC: 5A1D00Z (ICD-10-PCS; 2017-03-03)
PROC: 0DJ08ZZ Inspection of Upper Intestinal Tract, Via Natural or Artificial Opening Endoscopic (ICD-10-PCS; principal; 2017-03-03 07:01)
DX: J96.01 Acute respiratory failure with hypoxia (principal); I13.2 Hypertensive heart and chronic kidney disease with heart failure and with stage 5 chronic kidney disease, or end stage renal disease; J18.9 Pneumonia, unspecified organism; D61.818 Other pancytopenia; N18.6 End stage renal disease; I27.2 Other secondary pulmonary hypertension; I48.92 Unspecified atrial flutter; I50.32 Chronic diastolic (congestive) heart failure; Z94.0 Kidney transplant status; Z99.81 Dependence on supplemental oxygen; E83.42 Hypomagnesemia; Z99.2 Dependence on renal dialysis; D63.1 Anemia in chronic kidney disease; I25.10 Atherosclerotic heart disease of native coronary artery without angina pectoris; E78.5 Hyperlipidemia, unspecified; I25.2 Old myocardial infarction; I08.3 Combined rheumatic disorders of mitral, aortic and tricuspid valves; J44.9 Chronic obstructive pulmonary disease, unspecified; Z87.891 Personal history of nicotine dependence; I48.0 Paroxysmal atrial fibrillation; Z95.1 Presence of aortocoronary bypass graft; I25.5 Ischemic cardiomyopathy; E05.90 Thyrotoxicosis, unspecified without thyrotoxic crisis or storm
CPT/HCPCS: 36415; 71010; 80048; 80053; 80061; 80076; 80200; 81003; 82308; 82550; 82553; 82947; 83735; 84100; 84439; 84443; 84481; 84484; 85025; 85027; 85610; 85730; 86850; 86900; 86901; 86923; 87040; 87449; 87899; 93005; 94640; 94760; 99285; C9113; J0456; J1644; J2405; J2543; J3260; J3370; P9016; Q4081